=== PATIENT | male | born 1995 | race Caucasian/White ===

== ENCOUNTER 2018-11-20 18:48 | Emergency (ER) | payer OTHER ==
[2018-11-20 18:57] VITALS: BP 145/98
--- NOTE | 2018-11-20 19:53 | UC ---
Knee Pain HPI - HPI Summary HPI Summary: 23 yo male with right knee injury that occurred 3 days ago playing foot ball hit from behind hurts medially no buckling no prior injury - History of Current Complaint Chief Complaint: UCLowerExtremity Stated Complaint: KNEE INJURY Time Seen by Provider: 11/20/18 19:52 Hx Obtained From: Patient Onset/Duration: Sudden Onset, Lasting Days Severity Initially: Moderate Severity Currently: Moderate Pain Intensity: 8 - with wt bearing Pain Scale Used: 0-10 Numeric Character: Sharp, Aching Aggravating Factor(s): Movement, Weight Bearing Alleviating Factor(s): Rest Associated Signs And Symptoms: Positive: Negative Able to Bear Weight: Yes Legs: 1 - pain here - Allergies/Home Medications Allergies/Adverse Reactions: Allergies Allergy/AdvReac Type Severity Reaction Status Date / Time No Known Allergies Allergy Verified 11/20/18 18:57 Home Medications: Home Medications NK [No Home Medications Reported] 11/20/18 [History Confirmed 11/20/18] PMH/Surg Hx/FS Hx/Imm Hx Previously Healthy: Yes - Surgical History Surgical History: None - Family History Known Family History: Positive: Hypertension - Social History Alcohol Use: Rare Substance Use Type: None Smoking Status (MU): Never Smoked Tobacco - Immunization History Most Recent Influenza Vaccination: no Vaccination Up to Date: Yes Review of Systems All Other Systems Reviewed And Are Negative: Yes Constitutional: Positive: Negative Skin: Positive: Negative Eyes: Positive: Negative ENT: Positive: Negative Respiratory: Positive: Negative Cardiovascular: Positive: Negative Gastrointestinal: Positive: Negative Motor: Positive: Negative Neurovascular: Positive: Negative Musculoskeletal: Positive: Arthralgia - right knee, Decreased ROM Neurological: Positive: Negative Psychological: Positive: Negative Physical Exam Triage Information Reviewed: Yes Appearance: Well-Appearing, No Pain Distress, Well-Nourished, Other: - BMI 49 Vital Signs: Initial Vital Signs Temp 97.9 F 11/20/18 18:52 Pulse 95 11/20/18 18:52 Resp 16 11/20/18 18:52 BP 145/98 11/20/18 18:52 Pulse Ox 100 11/20/18 18:52 Vital Signs Reviewed: Yes Eyes: Positive: Conjunctiva Clear ENT: Positive: Hearing grossly normal. Negative: Nasal congestion, Nasal drainage, Trismus, Hoarse voice Neck: Positive: Supple, Nontender, No Lymphadenopathy Respiratory: Positive: Lungs clear, Normal breath sounds, No respiratory distress Cardiovascular: Positive: RRR, No Murmur Musculoskeletal: Positive: ROM Intact, No Edema, Other: - tender medial joint Neurological: Positive: Alert Psychological Exam: Normal Skin Exam: Normal Diagnostics - Radiology No standard instances Radiology Interpretation Completed By: ED Physician, Radiologist Summary of Radiographic Findings: Right knee- negative Knee Pain Course/Dx - Differential Dx/Diagnosis Provider Diagnosis: Right knee pain Discharge - Sign-Out/Discharge Documenting (check all that apply): Patient Departure All imaging exams completed and their final reports reviewed: No - Discharge Plan Condition: Stable Disposition: HOME Patient Education Materials: Knee Pain (ED), R.I.C.E. Treatment (ED) Referrals: Danie Fajardo MD [Medical Doctor] - 2 Weeks (if not better) [facility] [place] [facility] [Outside] - 2 Weeks (you need to find a primary to follow up on your BP recheck in 2-12 weeks) Additional Instructions: you may have a small medial meniscus tear rest luis ice elevation tylenol or advil for pain - Billing Disposition and Condition Condition: STABLE Disposition: Home
[2018-11-20] MEDS ORDERED: Ibuprofen TAB* 600 MG PO ONE (19:57)
--- NOTE | 2018-11-21 14:25 | UC ---
- Progress Note Progress Note: RADIOLOGY REPORT REVIEWED. NO EVIDENCE FOR FRACTURE. NO CHANGE IN MGMT. Course/Dx - Diagnoses Provider Diagnoses: Right knee pain Discharge ED - Sign-Out/Discharge Documenting (check all that apply): Post-Discharge Follow Up All imaging exams completed and their final reports reviewed: Yes - Discharge Plan Condition: Stable Disposition: HOME Patient Education Materials: Knee Pain (ED), R.I.C.E. Treatment (ED) Referrals: [facility] [place] [facility] [Outside] - 2 Weeks (you need to find a primary to follow up on your BP recheck in 2-12 weeks) Danie Fajardo MD [Medical Doctor] - 2 Weeks (if not better) Additional Instructions: you may have a small medial meniscus tear rest luis ice elevation tylenol or advil for pain - Billing Disposition and Condition Condition: STABLE Disposition: Home
== END 2018-11-20 20:50 | disposition home or self-care (01) ==
LOC: UCEAST 18:48
DX: M25.561 Pain in right knee (principal)
CPT/HCPCS: 99212; A9270-GY; G0463